=== PATIENT | male | born 1985 | race Caucasian/White ===

== ENCOUNTER 2023-11-26 15:05 | Inpatient (IN) | payer OTHER ==
[~2023-11-26] VITALS: Ht 180.3 cm; Wt 83.4 kg
[2023-11-26 15:28] LABS: APPEARANCE,URINE CLEAR (CLEAR); BILIRUBIN,URINE NEGATIVE (NEGATIVE); COLOR,URINE YELLOW (YELLOW); GLUCOSE, URINE (UA) NEGATIVE (NEGATIVE); KETONES,URINE 10 mg/dL (NEGATIVE); LEUKOCYTE ESTERASE ,URINE NEGATIVE Leu/uL (NEGATIVE); NITRATE,URINE NEGATIVE (NEGATIVE); OCCULT BLOOD,URINE NEGATIVE (NEGATIVE); PROTEIN,URINE 50 mg/dL (NEGATIVE)
[2023-11-26 15:33] LABS: ADD UA MICROSCOPIC YES
[2023-11-26 15:39] LABS: BACTERIA,URINE RARE /HPF (None Seen); MUCUS,URINE FEW LPF (None Seen)
[2023-11-26 15:45] LABS: BASOPHILS # (AUTO) 0.02 K/uL (0.00-0.20); BASOPHILS % (AUTO) 0.3 % (0.0-5.0); EOSINOPHILS # (AUTO) 0.15 K/uL (0.00-0.70); EOSINOPHILS % (AUTO) 2.2 % (0.0-8.0); HEMATOCRIT 44.7 % (42-54); IMMATURE GRANULOCYTE ABSOLUTE 0.02 K/uL (0-1); LYMPHOCYTES # (AUTO) 0.4 K/uL (1.0-4.8); MEAN CORPUSCULAR HEMOGLOBIN 28.7 pg (27.0-33.0); MEAN CORPUSCULAR HGB CONC 34.2 g/dL (32.0-36.0); MEAN CORPUSCULAR VOLUME 83.9 fL (79-99); MONOCYTES # (AUTO) 0.4 K/uL (0.1-1.0); MONOCYTES % (AUTO) 6.3 % (3.0-13.0); NEUTROPHILS # (AUTO) 5.9 K/uL (1.8-7.7); NEUTROPHILS % (AUTO) 84.9 % (40.0-77.0); PLATELET COUNT (AUTO) 212 K/uL (130-400); RED BLOOD CELL COUNT(AUTO) 5.33 MIL/uL (4.50-6.20); RED CELL DISTRIBUTION WIDTH 12.3 % (11.0-15.5)
[2023-11-26 15:58] LABS: CREATININE 0.9 mg/dL (0.5-1.3); POTASSIUM 3.7 mmol/L (3.5-5.1)
[2023-11-26 16:03] LABS: ALBUMIN 3.5 g/dL (3.5-5.0); BILIRUBIN,TOTAL 0.9 mg/dL (0.2-1.0); TOTAL PROTEIN, SERUM 7.1 g/dL (6.0-8.3)
[2023-11-26] MEDS: ketOROlac 30MG VIAL (30MG/ML) IVP ONE (16:44)
[2023-11-26] MEDS: ONDANSETRON 4MG INJ IVP ONE (16:44)
[2023-11-26] MEDS: 0.9%NACL 1000ML 1,000 ML IV ONE (16:44)
[2023-11-26] MEDS ORDERED: IOHEXOL 350 MG/ML 100ML INFUS..BTL IV ONE (17:15)
[2023-11-26] MEDS: ZOSYN 3.375GM +NS 50ML IVPB SCH (19:00)
[2023-11-26] MEDS ORDERED: acetaMINOPHEN 325 MG TAB PO PRN (19:00)
[2023-11-26] MEDS ORDERED: 0.9%NACL 50ML IV SCH (21:00)
[2023-11-26] MEDS: DEXTROSE 5 % AND 0.9 % NACL 1,000 ML IV SCH (21:35)
[2023-11-26] MEDS: morPHINE 4 MG SYG IM PRN (21:36)
[2023-11-26] MEDS: ONDANSETRON 4MG INJ IVP PRN (21:36)
[2023-11-26] MEDS: levoFLOXacin 750 MG/D5W 150ML BAG IV ONE (21:48)
[2023-11-26 22:26] VITALS: O2SAT 97
[2023-11-26 23:00] VITALS: BP 127/68; PULSE 83; RESP 19; TEMP 98.1
[2023-11-26] MEDS: metRONIDazole 500MG/100ML BAG IV SCH (23:25)
[2023-11-27] VITALS (8 sets, daily range): BP systolic 121–137; BP diastolic 63–88; PULSE 52–73; RESP 16–20; TEMP 97.7–98.7; O2SAT 96–98
[2023-11-27 05:20] LABS: BASOPHILS # (AUTO) 0.02 K/uL (0.00-0.20); BASOPHILS % (AUTO) 0.5 % (0.0-5.0); EOSINOPHILS # (AUTO) 0.12 K/uL (0.00-0.70); HEMATOCRIT 38.2 % (42-54); IMMATURE GRANULOCYTE ABSOLUTE 0.01 K/uL (0-1); LYMPHOCYTES # (AUTO) 0.8 K/uL (1.0-4.8); LYMPHOCYTES % (AUTO) 19.5 % (21.0-51.0); MEAN CORPUSCULAR HEMOGLOBIN 28.5 pg (27.0-33.0); MEAN CORPUSCULAR HGB CONC 33.8 g/dL (32.0-36.0); MEAN CORPUSCULAR VOLUME 84.5 fL (79-99); MONOCYTES # (AUTO) 0.5 K/uL (0.1-1.0); MONOCYTES % (AUTO) 12.5 % (3.0-13.0); NEUTROPHILS # (AUTO) 2.6 K/uL (1.8-7.7); NEUTROPHILS % (AUTO) 64.2 % (40.0-77.0); PLATELET COUNT (AUTO) 183 K/uL (130-400); RED BLOOD CELL COUNT(AUTO) 4.52 MIL/uL (4.50-6.20); RED CELL DISTRIBUTION WIDTH 12.5 % (11.0-15.5)
[2023-11-27 05:43] LABS: ALBUMIN 2.6 g/dL (3.5-5.0); BILIRUBIN,TOTAL 0.8 mg/dL (0.2-1.0); CREATININE 0.8 mg/dL (0.5-1.3); MAGNESIUM 1.7 mg/dL (1.80-2.40); POTASSIUM 3.3 mmol/L (3.5-5.1); TOTAL PROTEIN, SERUM 5.7 g/dL (6.0-8.3)
[2023-11-27] MEDS: ketOROlac 30MG VIAL (30MG/ML) IVP PRN (09:23)
[2023-11-27] MEDS: acetaMINOPHEN 325 MG TAB PO PRN (13:51)
[2023-11-27] MEDS: levoFLOXacin 750 MG/D5W 150 ML 150 ML IV SCH (21:48)
[2023-11-28 03:00] VITALS: BP 126/80; PULSE 52; RESP 17; TEMP 98.2
[2023-11-28 05:55] LABS: MEAN CORPUSCULAR HEMOGLOBIN 28.7 pg (27.0-33.0); MEAN CORPUSCULAR HGB CONC 33.5 g/dL (32.0-36.0); MEAN CORPUSCULAR VOLUME 85.6 fL (79-99); RED BLOOD CELL COUNT(AUTO) 4.32 MIL/uL (4.50-6.20); RED CELL DISTRIBUTION WIDTH 12.2 % (11.0-15.5); WHITE BLOOD COUNT (AUTO) 4.2 K/uL (4.8-10.8)
[2023-11-28] MEDS: morPHINE 4 MG SYG IVP PRN (06:11)
[2023-11-28 06:19] LABS: ALBUMIN 1.8 g/dL (3.5-5.0); BILIRUBIN,TOTAL 0.5 mg/dL (0.2-1.0); CREATININE 0.7 mg/dL (0.5-1.3); MAGNESIUM 2.1 mg/dL (1.80-2.40); TOTAL PROTEIN, SERUM 6.2 g/dL (6.0-8.3)
[2023-11-28 08:00] VITALS: BP 129/81; PULSE 44; RESP 18; TEMP 97.7
[2023-11-28 08:20] VITALS: O2SAT 98
[2023-11-28 12:00] VITALS: BP 133/86; PULSE 48; RESP 18; TEMP 97.6
== END 2023-11-28 16:45 | DRG 445 ==
LOC: EDH 15:05 → EEVIPCON 15:05 → EDHIP 18:31 → 3BH 22:11
PROVIDERS: ADMIT Internal Medicine Infectious Disease; ATTEND Internal Medicine Infectious Disease
DX: K80.20 Calculus of gallbladder without cholecystitis without obstruction (principal); K35.890 Other acute appendicitis without perforation or gangrene; E66.9 Obesity, unspecified; K42.9 Umbilical hernia without obstruction or gangrene; K59.00 Constipation, unspecified; J45.909 Unspecified asthma, uncomplicated; K21.9 Gastro-esophageal reflux disease without esophagitis; K43.9 Ventral hernia without obstruction or gangrene; Z88.0 Allergy status to penicillin; Z68.25 Body mass index [BMI] 25.0-25.9, adult
CPT/HCPCS: 36415; 74177; 80053; 81001; 83690; 83735; 85025; 85027; G0378; J1885; J1956; J2270; J2405; J2543; J3490; J7030; J7042; Q9967